=== PATIENT | male | born 2005 | race Caucasian/White ===

== ENCOUNTER 2024-03-08 01:06 | Emergency (ER) | payer BC, SELFPAY ==
[2024-03-08] MEDS ORDERED: Ondansetron PF 4 MG/2 ML Vial ONE (01:09)
[2024-03-08] MEDS ORDERED: Prochlorperazine 10 MG/2 ML VIAL ONE (02:21)
== END 2024-03-08 03:26 | disposition home or self-care (01) ==
LOC: CSHERS 01:06
DX: F10.129 Alcohol abuse with intoxication, unspecified (principal)
CPT/HCPCS: 96374; 96375; J0780; J2405